=== PATIENT | female | born 1965 | race Caucasian/White ===

== ENCOUNTER 2017-01-09 08:19 | Day surgery (SDC) | payer BC ==
[2017-01-09] VITALS (7 sets, daily range): BP systolic 116–174; BP diastolic 62–79; PULSE 46–57; TEMP 36.6–37; O2SAT 96–100; Ht 154.9 cm; Wt 68.5 kg
[~2017-01-09] VITALS: Ht 154.9 cm; Wt 68.5 kg
[~2017-01-09 08:19] MED LIST: ACET-1256 PO; ATEN-173 PO; ATOR-22 PO; ESTR1.252 PO; METF-383 PO; OMEP40CA PO; RANI300T2 PO
[2017-01-09] MEDS ORDERED: ACET500C35 PO ×2 (09:00)
[2017-01-09] MEDS ORDERED: bp pill PO (09:04)
[2017-01-09] MEDS ORDERED: IBUP-1050 PO (09:23)
[2017-01-09] MEDS ORDERED: NURSING VERBAL MED ORDER ONE (10:00)
[2017-01-09] MEDS ORDERED: DEXTROSE 5% 1000ML 1,000 ML IV SCH (10:15)
--- NOTE | 2017-01-09 11:16 | DIAGNOSTIC IMAGING REPORT ---
LUMBAR PUNCTURE DIAGNOSTIC CLINICAL HISTORY: 51-year-old female presents with headache and loss of vision. Concern for pseudotumor cerebri. PROCEDURE: The risks, benefits, and alternatives to the procedure is discussed with the patient who voiced understanding. Written informed consent was obtained. The patient was placed prone on the fluoroscopy table. The lower back was prepped and draped in the usual sterile fashion. 1% lidocaine was used for local anesthesia. A 20-gauge spinal needle was inserted into the L3-L4 interlaminar space, and approximately 10 cc of clear colorless cerebrospinal fluid was removed. The patient tolerated the procedure well. There were no immediate complications. Opening pressure: 18 cm Closing pressure: 15 cm The patient was then transported to the medical treatment unit for further observation. Fluoroscopy time: 0.8 minutes IMPRESSION: 1. Successful fluoroscopically guided lumbar puncture with removal of approximately 10 cc of cerebrospinal fluid. There were no immediate complications. 2. Opening and closing pressures as above. The above report was generated using voice recognition software. It may contain grammatical, syntax or spelling errors. Electronically signed by: Paulo Hester M.D. 01/09/2017 11:14 AM Dictated Date/Time: 01/09/2017 11:12 AM
--- NOTE | 2017-01-09 11:22 | Discharge Instructions ---
Discharge Instructions Procedure Procedure Date: Jan 09, 2017. Reason for visit: *W/Opening Pressure* Pseudo Tumor. Discharge Discharge Date: Jan 09, 2017. Discharge Diagnosis: Headache. Status post lumbar puncture. Instructions Activity Recommendations: 1 Day-May resume regular activity, 48 Hours of decreased exertion Return to School/Work: no limitations Recommended Home Diet: No Limitations, Resume Previous Diet Allergies Coded Allergies: Metoprolol (Verified Allergy, Intermediate, VAGINITIS, 01/09/17) Mila Cortez Recommendations: Call your doctor if: * Temperature above 101 degrees * Pain not relieved by pain medicine ordered * There is increased drainage or redness from any incision * You have any unanswered questions or concerns. Your Doctors Instructions noted above were prepared by provider Evans Hester. Patient Signature Section: Patient Instructions Signature Page Yvette Manning Patient (or Guardian) Signature/Date: I have read and understand the instructions given to me by my caregivers. Caregiver/RN/Doctor Signature/Date: The above-named patient and/or guardian has received patient instructions on this date. + Original Patient Signature Page (only) stays with chart. Please make copy for patient.
[2017-01-09 11:35] LABS: CSF TOTAL PROTEIN 57.8 mg/dl (15.0-45.0)
[2017-01-09 12:31] LABS: CSF APPEARANCE CLEAR; CSF COLOR COLORLESS; CSF XANTHOCHROMIC NO XANTHOCHROMIA
== END 2017-01-09 14:30 | disposition home or self-care (01) ==
LOC: C.ACU 08:19
PROVIDERS: ATTEND Psychiatry & Neurology Neurology
DX: R51 Headache (principal); G93.2 Benign intracranial hypertension

== ENCOUNTER 2017-07-23 13:14 | Emergency (ER) | payer BC ==
[~2017-07-23] VITALS: Ht 160 cm; Wt 72.7 kg
[~2017-07-23 13:14] MED LIST changes: +ACET500C35 PO; -ATOR-22 PO; -ESTR1.252 PO; +IBUP-1050 PO; +bp pill PO
[2017-07-23 13:26] VITALS: TEMP 36.7; Ht 160 cm; Wt 72.7 kg
[2017-07-23] MEDS ORDERED: ATEN50TA8 PO (13:37)
[2017-07-23] MEDS ORDERED: ACET500C12 PO (13:37)
[2017-07-23] MEDS ORDERED: AMLO2.5T PO (13:37)
[2017-07-23] MEDS ORDERED: NXM/40 PO (13:37)
--- NOTE | 2017-07-23 14:08 | DIAGNOSTIC IMAGING REPORT ---
L ANKLE MIN 3 VIEWS ROUTINE CLINICAL HISTORY: Left ankle pain. No trauma. COMPARISON: Left ankle radiographs October 11, 2015. FINDINGS: Alignment of the left ankle is anatomic. Talar dome is intact. No fracture or osseous lesion is identified. There is suspected mild lateral ankle soft tissue swelling. There is a possible tibiotalar joint effusion. IMPRESSION: 1. No acute fracture or dislocation of the left ankle. 2. Possible tibiotalar joint effusion. 3. Mild lateral ankle soft tissue swelling. Electronically signed by: Adama Whitaker M.D. 07/23/2017 2:07 PM Dictated Date/Time: 07/23/2017 2:04 PM
[2017-07-23] MEDS ORDERED: KETOROLAC TROMETHAMINE 30 MG/ML VIAL IV STA (14:12)
[2017-07-23 14:36] LABS: HEMATOCRIT 50.1 % (37-47); HEMOGLOBIN 17.3 g/dL (12.0-16.0); MEAN CELL VOLUME 92.1 fL (80-100); MEAN CORPUSCULAR HEMOGLOBIN 31.8 pg (25-34); MEAN CORPUSCULAR HGB CONC 34.5 g/dl (32-36); PLATELET COUNT 194 K/uL (130-400); RED CELL DISTRIBUTION WIDTH CV 13.5 % (11.5-14.5); RED CELL DISTRIBUTION WIDTH SD 45.5 fL (36.4-46.3); WHITE BLOOD COUNT 7.87 K/uL (4.8-10.8)
[2017-07-23 14:49] LABS: CALCIUM 9.6 mg/dl (8.5-10.1); CREATININE 0.83 mg/dl (0.60-1.20); POTASSIUM 4.4 mmol/L (3.5-5.1); URIC ACID 4.9 mg/dl (2.6-7.2)
[2017-07-23 15:05] LABS: BASO % 0.3 %; BASO ABS # 0.02 K/uL (0-0.2); EOS % 1.9 %; EOS ABS # 0.15 K/uL (0-0.5); IG# 0.01 K/uL (0.00-0.02); LYMPH % 30.2 %; LYMPH ABS # 2.38 K/uL (1.2-3.4); MONO % 6.1 %; MONO ABS # 0.48 K/uL (0.11-0.59); NEUT % 61.4 %; NEUT ABS # 4.83 K/uL (1.4-6.5)
[2017-07-23] MEDS ORDERED: NORCO 5/325MG HOME PACK PO ONE (16:00)
[2017-07-23] MEDS ORDERED: HYDR-5688 PO (16:05)
[2017-07-23 16:12] VITALS: BP 154/85; PULSE 54; O2SAT 96
--- NOTE | 2017-07-23 21:13 | EMERGENCY ROOM VISIT NOTE ---
ED Visit Note First contact with patient: 13:37 Chief Complaint: Left ankle pain. History of Present Illness: Ms. Manning is a 51-year-old white female who is brought into the ED via wheelchair accompanied by her complaining of diffuse left ankle pain. Patient reports she has been feeling fine over the last few days and as not sustained any recent ankle pain. She reports upon waking this morning she notices severe left ankle pain. She reports she had a similar symptoms proximally 2 years ago and no cause was found. Currently she describes her pain as a throbbing sensation. She locates her pain diffusely throughout the ankle and into her calcaneus. She rates her discomfort 8/10. Her pain worsens with plantar flexion, dorsiflexion, inversion and eversion of the ankle, ambulation and palpation. She has not identified any alleviating factors related to the pain. He reports she has used ibuprofen and 2 of her 's Indocin gout medicine without relief of her discomfort. She denies any associated symptoms including fevers, chills, sweats, skin eruptions, skin color changes, previous significant injuries or surgeries to the ankle/foot, leg weakness/numbness/tingling, lumbar back pain. Review of Systems: As noted above in history of present illness. 8 body systems were reviewed and found to be negative as noted above. Past Medical History: As previously noted, diabetes, hypertension, unspecified stomach disorder, status post hysterectomy, exploratory laparoscopy, cholecystectomy and shunt placement for pseudotumor cerebri. Current Medications: Glucophage, Zantac, Acetazolamide, Nexium, Norvasc, Tenormin. Allergies to Medications: Metoprolol. Social History: Patient is currently employed; she feels safe in her home environment; she admits to tobacco use and denies alcohol use. Physical Examination: Vital Signs: Date Time Temp Pulse Resp B/P (MAP) Pulse Ox O2 Delivery O2 Flow Rate FiO2 07/23/17 16:12 54 16 154/85 96 07/23/17 13:26 36.7 57 20 152/86 97 Room Air GENERAL: 51-year-old female in mild to moderate distress due to pain, nontoxic- appearing, afebrile and hemodynamically stable. NEUROLOGICAL: Awake, alert and oriented to person, place and time. Answering questions appropriately and following commands. Good hand eye coordination. No focal motor or sensory deficits. SKIN: Warm, dry and pink. No soft tissue eruptions or trauma noted. LEFT LOWER LEG: No gross bony deformity. No tenderness in the knee or lower leg. Moderate to severe tenderness throughout the ankle and a cane is. I do not appreciate any bony deformity, bony crepitus, swelling or ecchymosis. She was not tolerable of ligamentous testing because of pain. She refused to do range of motion testing due to pain. She was able to move her toes. Dorsalis pedis and anterior tibialis pulses are intact and equal bilaterally. She was able to distinguish light sensations through all dermatomes of the foot. I do not appreciate any signs of cellulitis or gout. ED Course: Patient is assessed as noted above. Patient's medication list was reviewed. Laboratory Testing: Test 07/23/17 14:26 Range/Units White Blood Count 7.87 4.8-10.8 K/uL Red Blood Count 5.44 4.2-5.4 M/uL Hemoglobin 17.3 12.0-16.0 g/dL Hematocrit 50.1 37-47 % Mean Corpuscular Volume 92.1 80-100 fL Mean Corpuscular Hemoglobin 31.8 25-34 pg Mean Corpuscular Hemoglobin Concent 34.5 32-36 g/dl Platelet Count 194 130-400 K/uL Mean Platelet Volume 11.0 7.4-10.4 fL Neutrophils (%) (Auto) 61.4 % Lymphocytes (%) (Auto) 30.2 % Monocytes (%) (Auto) 6.1 % Eosinophils (%) (Auto) 1.9 % Basophils (%) (Auto) 0.3 % Neutrophils # (Auto) 4.83 1.4-6.5 K/uL Lymphocytes # (Auto) 2.38 1.2-3.4 K/uL Monocytes # (Auto) 0.48 0.11-0.59 K/uL Eosinophils # (Auto) 0.15 0-0.5 K/uL Basophils # (Auto) 0.02 0-0.2 K/uL RDW Standard Deviation 45.5 36.4-46.3 fL RDW Coefficient of Variation 13.5 11.5-14.5 % Immature Granulocyte % (Auto) 0.1 % Immature Granulocyte # (Auto) 0.01 0.00-0.02 K/uL Sodium Level 142 136-145 mmol/L Potassium Level 4.4 3.5-5.1 mmol/L Chloride Level 108 98-107 mmol/L Carbon Dioxide Level 27 21-32 mmol/L Anion Gap 7.0 3-11 mmol/L Blood Urea Nitrogen 14 7-18 mg/dl Creatinine 0.83 0.60-1.20 mg/dl Est Creatinine Clear Calc Drug Dose 75.7 ml/min Estimated GFR () 94.0 Estimated GFR (Non- 81.1 BUN/Creatinine Ratio 17.0 10-20 Random Glucose 69 70-99 mg/dl Uric Acid 4.9 2.6-7.2 mg/dl Calcium Level 9.6 8.5-10.1 mg/dl Right Ankle X-Rays: Were read by myself and the radiologist showing no acute fractures or dislocations. There is a mild posterior calcaneal spurring and mild lateral ankle swelling. Left Foot X-Rays: Were read by myself and the radiologist and shows no acute fractures or dislocations. Radiologist notes mild lateral ankle swelling and a possible trace tibiotalar joint effusion. Patient was reassessed multiple times during her stay in the emergency department. Patient was offered postop shoe and nonweightbearing crutches; she reports she has crutches in a postop shoe from her last visit at home. Patient was educated about today's findings and instructed on her treatment plan ; she verbalizes understanding and agreement with this plan. Clinical Impression: Right ankle pain. Decision-Making: Initially my differential diagnosis I considered sprain, fracture, dislocation, tendinitis, sialitis, gout, polycythemia vera and other causes. Disposition: Patient discharged home in stable condition accompanied by her ; prior to departure she was reassessed and subjectively reported she was feeling better. Plan: Patient was placed on a sliding pain medication scale of ibuprofen, acetaminophen and [place]; her name was checked in the state database and no red flags were noted and she was given appropriate narcotic precautions. Patient was encouraged to use her boot and nonweightbearing crutches for 3-6 days or until pain free. Patient is encouraged to keep her foot elevated while at rest. Patient is encouraged to follow-up with family physician for recheck. Patient was encouraged return ED for worsening/uncontrolled pain, vomiting, abdominal pain, fevers or any new/concerning symptoms.
== END 2017-07-23 16:13 | disposition home or self-care (01) ==
LOC: C.EDB 13:15 → C.EDD 16:13
DX: M25.572 Pain in left ankle and joints of left foot (principal); E11.9 Type 2 diabetes mellitus without complications; I10 Essential (primary) hypertension; Z72.0 Tobacco use; Z90.710 Acquired absence of both cervix and uterus; Z90.49 Acquired absence of other specified parts of digestive tract; Z79.84 Long term (current) use of oral hypoglycemic drugs; Z79.899 Other long term (current) drug therapy